=== PATIENT | female | born 1985 | race Caucasian/White ===

== ENCOUNTER 2017-01-19 20:58 | Emergency (ER) | payer OTHER ==
[~2017-01-19] VITALS: Ht 165.1 cm; Wt 74.8 kg
[~2017-01-19 20:58] MED LIST: AMOXICILLIN250 MG; MOTRIN600 M1; PROMETHAZINE D118 M1
[2017-01-19 20:59] VITALS: BP 131/79
--- NOTE | 2017-01-19 22:32 | NUR ---
PATIENT AMBULATED TO BED 2.
--- NOTE | 2017-01-19 22:33 | NUR ---
31Y F BIB FAMILY C/O ALLERGIC RXN OF UNKNOWN ORIGIN AT 1900 TODAY . PT STATES SHE IS HAVING SORE THROAT, TINGLING FACE . PT DENIES N/V/D; SKIN IS PINK/WARM/DRY; AAOX4 WITH EVEN AND STEADY GAIT; LUNGS CLEAR BL; HR EVEN AND REGULAR; PT DENIES ANY FEVER, CP, OR COUGH AT THIS TIME; PATIENT STATES PAIN OF 6/10 AT THIS TIME; VSS; PATIENT POSITIONED FOR COMFORT; HOB ELEVATED; BEDRAILS UP X2; BED DOWN. ER MD MADE AWARE OF PT STATUS.
[2017-01-20] MEDS ORDERED: KETOROLAC 60 MG/2 ML VIAL IM ONE
[2017-01-20] MEDS ORDERED: diphenhydrAMINE 50 MG CAP PO ONE (00:30)
--- NOTE | 2017-01-20 01:05 | NUR ---
Patient being evaluated by physician DR VELA at bedside.
[2017-01-20 01:38] VITALS: BP 126/74
--- NOTE | 2017-01-20 01:39 | NUR ---
Patient discharged with v/s stable. Written and verbal after care instructions given and explained. Patient alert, oriented and verbalized understanding of instructions. Ambulatory with steady gait. All questions addressed prior to discharge. ID band removed. Patient advised to follow up with PMD. Rx of BENDADRYL 25MG AND PREDNISONE 20MG given. Patient educated on indication of medication including possible reaction and side effects. Opportunity to ask questions provided and answered.
== END 2017-01-20 01:39 | disposition home or self-care (01) ==
LOC: MED 21:02
DX: T78.40XA Allergy, unspecified, initial encounter (principal); L50.9 Urticaria, unspecified; R22.0 Localized swelling, mass and lump, head; Z90.89 Acquired absence of other organs; X58.XXXA Exposure to other specified factors, initial encounter
CPT/HCPCS: 96372; 99284; J0171; J1885; Q0163

== ENCOUNTER 2018-02-06 18:19 | Emergency (ER) | payer MEDICAID, OTHER ==
[~2018-02-06] VITALS: Ht 165.1 cm; Wt 77.1 kg
[~2018-02-06 18:19] MED LIST changes: +AMOX250C31; -AMOXICILLIN250 MG; +DM/P118S7; +IBUP-2213; -MOTRIN600 M1; -PROMETHAZINE D118 M1
[2018-02-06 18:26] VITALS: BP 139/86
--- NOTE | 2018-02-06 18:30 | NUR ---
URINE CUP PROVIDED TO PT FOR URINE SAMPLE; PT AWAKE, ALERT, APPROPRIATE AT THIS TIME. PT TO LOBBY AWAITING OPEN BED.
[2018-02-06 19:05] LABS: HEMATOCRIT 38.6 % (36-48); HEMOGLOBIN 12.9 g/dL (12.0-16.0); MEAN CORPUSCULAR HEMOGLOBIN 32 pg (27-31); MEAN CORPUSCULAR HGB CONC 34 g/dL (33-37); MEAN CORPUSCULAR VOLUME 95 fL (80-94); PLATELET COUNT (AUTO) 297 K/uL (140-450); RED BLOOD CELL COUNT(AUTO) 4.07 MIL/uL (4.20-5.40); RED CELL DISTRIBUTION WIDTH 13.3 % (11.6-13.7); WHITE BLOOD COUNT (AUTO) 9.8 K/uL (4.8-10.8)
[2018-02-06 19:06] LABS: BASOPHILS # (AUTO) 0.1 K/uL (0.00-0.22); BASOPHILS % (AUTO) 0.9 % (0.0-2.0); EOSINOPHILS % (AUTO) 0.4 % (0.0-4.0); LYMPHOCYTES # (AUTO) 2.4 K/uL (2.5-16.5); LYMPHOCYTES % (AUTO) 24.9 % (20.5-51.1); MONOCYTES # (AUTO) 0.4 K/uL (0.8-1.0); MONOCYTES % (AUTO) 4.1 % (1.7-9.3); NEUTROPHILS # (AUTO) 6.8 K/uL (1.8-7.7); NEUTROPHILS % (AUTO) 69.7 % (42.2-75.2)
[2018-02-06 19:33] LABS: APPEARANCE,URINE CLEAR (CLEAR); BILIRUBIN,URINE NEGATIVE (NEGATIVE); BLOOD, URINE 2+ (NEGATIVE); COLOR,URINE YELLOW (YELLOW); LEUKOCYTE ESTERASE ,URINE TRACE (NEGATIVE); NITRITE, URINE NEGATIVE (NEGATIVE); UGLUCOSE NEGATIVE (NEGATIVE)
--- NOTE | 2018-02-06 19:40 | NUR ---
/ CAME IN W C/O VAGINAL BLEEDING X1 PAD S/P TRANSVAGINAL OB TODAY ORDERED BY HER OB. PT REPORTS 7/10 LOWER ABD PAIN RADIATING TO BACK. PT DENIES ANY CLOT, DENIES ANY ACTIVE BLEEDING AT THIS TIME, STATES " IT SLOWED DOWN NOW". , CURRENTYL 8 WEEKS . DENIES OTHER PMH/RX/OTC
[2018-02-06 19:48] LABS: RBC,URINE 11-20 (MOD) /HPF (0-5); WBC,URINE 0-5 (RARE) /HPF (0-5)
[2018-02-06 20:53] VITALS: BP 124/75
== END 2018-02-06 20:53 | disposition home or self-care (01) ==
LOC: MED 18:19
DX: O20.0 Threatened abortion (principal); O23.41 Unspecified infection of urinary tract in pregnancy, first trimester; Z3A.01 Less than 8 weeks gestation of pregnancy; Z91.013 Allergy to seafood
CPT/HCPCS: 36415; 76817; 81001; 84702; 85025; 86900; 86901; 99285; Q0092

== ENCOUNTER 2018-02-08 13:56 | Emergency (ER) | payer MEDICAID ==
[~2018-02-08] VITALS: Ht 165.1 cm; Wt 77.2 kg
[2018-02-08 14:01] VITALS: BP 128/71
--- NOTE | 2018-02-08 14:04 | NUR ---
URINE CUP PROVIDED TO PT FOR URINE SAMPLE; PT AWAKE, ALERT, APPROPRIATE WITH EVEN AND STEADY GAIT; PT TO LOBBY AWAITING OPEN BED.
--- NOTE | 2018-02-08 14:05 | NUR ---
32F BIB FAMILY C/O VAGINAL BLEEDING X 2 DAYS, WORSENING TODAY WITH CLOTTS; PT STATES 8 WEEKS AT THIS TIME. M0 A0. HX: PT DENIES. DENIES N/V/D. AAOX4 WITH EVEN AND STEADY GAIT; LUNGS CLEAR BL. PATIENT STATES PAIN OF 8/10 AT THIS TIME. PATIENT POSITIONED FOR COMFORT; HOB ELEVATED; BEDRAILS UP X2; BED DOWN. ER MD MADE AWARE OF PT STATUS.
--- NOTE | 2018-02-08 14:59 | NUR ---
PT AMBULATED TO BED 1.
[2018-02-08] MEDS ORDERED: ACETAMINOPHEN EXTRA STRENGTH 500 MG TAB PO ONE (15:10)
--- NOTE | 2018-02-08 15:34 | NUR ---
US AT BEDSIDE
[2018-02-08 15:45] LABS: APPEARANCE,URINE CLOUDY (CLEAR); BILIRUBIN,URINE NEGATIVE (NEGATIVE); BLOOD, URINE 3+ (NEGATIVE); COLOR,URINE RED (YELLOW); LEUKOCYTE ESTERASE ,URINE NEGATIVE (NEGATIVE); NITRITE, URINE NEGATIVE (NEGATIVE); UGLUCOSE NEGATIVE (NEGATIVE)
[2018-02-08 16:20] LABS: CALCIUM OXALATE CRYSTALS,UR 0-10 /HPF (None Seen); RBC,URINE TOO NUMEROUS TO COUN /HPF (0-5); WBC,URINE 0-5 (RARE) /HPF (0-5)
[2018-02-08 16:29] LABS: BASOPHILS # (AUTO) 0.2 K/uL (0.00-0.22); BASOPHILS % (AUTO) 1.7 % (0.0-2.0); EOSINOPHILS # (AUTO) 0.1 K/uL (0-0.4); EOSINOPHILS % (AUTO) 0.7 % (0.0-4.0); HEMOGLOBIN 12.9 g/dL (12.0-16.0); LYMPHOCYTES # (AUTO) 1.6 K/uL (2.5-16.5); LYMPHOCYTES % (AUTO) 12.8 % (20.5-51.1); MEAN CORPUSCULAR HEMOGLOBIN 32 pg (27-31); MEAN CORPUSCULAR HGB CONC 34 g/dL (33-37); MEAN CORPUSCULAR VOLUME 95 fL (80-94); MONOCYTES # (AUTO) 0.7 K/uL (0.8-1.0); MONOCYTES % (AUTO) 5.3 % (1.7-9.3); NEUTROPHILS # (AUTO) 10.2 K/uL (1.8-7.7); NEUTROPHILS % (AUTO) 79.5 % (42.2-75.2); PLATELET COUNT (AUTO) 270 K/uL (140-450); RED BLOOD CELL COUNT(AUTO) 4.02 MIL/uL (4.20-5.40); RED CELL DISTRIBUTION WIDTH 12.2 % (11.6-13.7); WHITE BLOOD COUNT (AUTO) 12.8 K/uL (4.8-10.8)
[2018-02-08 16:34] LABS: ALBUMIN 3.6 g/dL (3.4-5.0); TOTAL BILIRUBIN 0.3 mg/dL (0.0-1.0)
[2018-02-08 16:35] LABS: CARBON DIOXIDE 27.4 mmol/L (21-32); CREATININE 0.8 mg/dL (0.6-1.3); POTASSIUM 3.4 mmol/L (3.5-5.1)
--- NOTE | 2018-02-08 18:11 | NUR ---
FEMALE CHAPERONED FOR DR. MAJANO DURING PELVIC EXAM
--- NOTE | 2018-02-08 18:22 | NUR ---
Patient discharged with v/s stable. Written and verbal after care instructions given and explained. Patient verbalized understanding. Ambulatory with steady gait. All questions addressed prior to discharge. Advised to follow up with PMD.
[2018-02-08 18:23] VITALS: BP 120/68
== END 2018-02-08 18:22 | disposition home or self-care (01) ==
LOC: MED 13:56
DX: O03.9 Complete or unspecified spontaneous abortion without complication (principal); Z3A.08 8 weeks gestation of pregnancy; Z91.013 Allergy to seafood
CPT/HCPCS: 36415; 76801; 80053; 81001; 81025; 84702; 85025; 99285; Q0092

== ENCOUNTER 2018-08-05 10:33 | Emergency (ER) | payer MEDICAID ==
[~2018-08-05] VITALS: Ht 167.6 cm; Wt 82.1 kg
--- NOTE | 2018-08-05 10:45 | NUR ---
PT AMBULATES TO BED 5
[2018-08-05 10:50] VITALS: BP 144/79
--- NOTE | 2018-08-05 10:55 | NUR ---
HANDED CUP TO PT FOR URINE SAMPLE
--- NOTE | 2018-08-05 11:03 | NUR ---
ACCOMPANIED BY C/O REPEATED VOMITING X 3 DAYS--EPIGASTRIC PAIN WITH EMESIS REFERRED BY OB TO COME TO ER POSSIBLE DEHYDRATION ----07/25/2018 RX REGLAN; NOT REALLY WORKING, N/V FOLLOWS SOON AFTER LMP 05/12/2018 . DENIES N/V/D; SKIN IS PINK/WARM/DRY; AAOX4 WITH EVEN AND STEADY GAIT; LUNGS CLEAR BL; HR EVEN AND REGULAR; PT DENIES ANY FEVER, CP, SOB, OR COUGH AT THIS TIME; PATIENT STATES PAIN OF 0/10 AT THIS TIME; VSS; PATIENT POSITIONED FOR COMFORT; HOB ELEVATED; BEDRAILS UP X2; BED DOWN. ER MD MADE AWARE OF PT STATUS.
--- NOTE | 2018-08-05 11:18 | NUR ---
DR WOLFE EVALUATING AT BEDSIDE
[2018-08-05] MEDS ORDERED: MULTIVITAMIN-12 10 ML, THIAMINE 100 MG, MAGNESIUM SULFATE 50% 2,000 MG, FOLIC ACID 5 MG... IV ONE ×5 (11:35)
[2018-08-05] MEDS ORDERED: PROMETHAZINE 25 MG/ML VIAL IM ONE (11:35)
[2018-08-05] MEDS ORDERED: ONDANSETRON 4 MG/2 ML VIAL IVP ONE (11:35)
[2018-08-05 12:17] LABS: BASOPHILS % (AUTO) 0.5 % (0.0-2.0); EOSINOPHILS % (AUTO) 0.5 % (0.0-4.0); HEMATOCRIT 38.4 % (36-48); LYMPHOCYTES # (AUTO) 1.6 K/uL (2.5-16.5); LYMPHOCYTES % (AUTO) 19.2 % (20.5-51.1); MEAN CORPUSCULAR HEMOGLOBIN 32 pg (27-31); MEAN CORPUSCULAR HGB CONC 34 g/dL (33-37); MONOCYTES # (AUTO) 0.4 K/uL (0.8-1.0); MONOCYTES % (AUTO) 4.2 % (1.7-9.3); NEUTROPHILS # (AUTO) 6.4 K/uL (1.8-7.7); NEUTROPHILS % (AUTO) 75.6 % (42.2-75.2); PLATELET COUNT (AUTO) 240 K/uL (140-450); RED BLOOD CELL COUNT(AUTO) 4.08 MIL/uL (4.20-5.40); RED CELL DISTRIBUTION WIDTH 12.7 % (11.6-13.7); WHITE BLOOD COUNT (AUTO) 8.4 K/uL (4.8-10.8)
[2018-08-05 12:40] LABS: ANION GAP 11.2 (8-16); CARBON DIOXIDE 23.1 mmol/L (21-32); CHLORIDE 104 mmol/L (98-107); CREATININE 0.5 mg/dL (0.6-1.3); GFR ARICAN-AMERICAN 185 mL/min (>90); GLUCOSE 89 mg/dL (74-106); POTASSIUM 4.3 mmol/L (3.5-5.1); SODIUM SERUM 134 mmol/L (136-145); UREA NITROGEN, BLOOD 5 mg/dL (7-18)
[2018-08-05 12:41] LABS: ACETONE, SERUM NEGATIVE (NEGATIVE)
[2018-08-05 12:46] LABS: ALBUMIN 3.2 g/dL (3.4-5.0); AMYLASE 53 U/L (25-115); ASPARTATE AMINOTRANSFERASE 11 U/L (15-37); LIPASE 144 U/L (73-393); MAGNESIUM 1.8 mg/dL (1.8-2.4); TOTAL BILIRUBIN 0.2 mg/dL (0.0-1.0)
[2018-08-05 12:48] LABS: APPEARANCE,URINE CLEAR (CLEAR); BILIRUBIN,URINE NEGATIVE (NEGATIVE); BLOOD, URINE NEGATIVE (NEGATIVE); COLOR,URINE YELLOW (YELLOW); LEUKOCYTE ESTERASE ,URINE NEGATIVE (NEGATIVE); NITRITE, URINE NEGATIVE (NEGATIVE); PH,URINE 7.5 (5.0-9.0); UGLUCOSE NEGATIVE (NEGATIVE)
[2018-08-05 13:24] LABS: RBC,URINE 0-5 (RARE) /HPF (0-5)
--- NOTE | 2018-08-05 14:15 | NUR ---
Patient discharged with v/s stable. Written and verbal after care instructions given and explained. Patient alert, oriented and verbalized understanding of instructions. Ambulatory with steady gait. All questions addressed prior to discharge. ID band removed. Patient advised to follow up with PMD. Rx of ZOFRAN, given. Patient educated on indication of medication including possible reaction and side effects. Opportunity to ask questions provided and answered.
[2018-08-05 14:16] VITALS: BP 120/68
== END 2018-08-05 14:15 | disposition home or self-care (01) ==
LOC: MED 10:33
DX: O21.0 Mild hyperemesis gravidarum (principal); Z79.899 Other long term (current) drug therapy
CPT/HCPCS: 36415; 80053; 81001; 82009; 82150; 83690; 83735; 85025; 87086; 87186; 96365; 96372; 96374; 99284; A9153; J2405; J2550; J3411; J3475; J3490; J7030

== ENCOUNTER 2018-11-11 21:03 | Inpatient (IN) | payer MEDICAID ==
[~2018-11-11] VITALS: Ht 167.6 cm; Wt 77.1 kg
[2018-11-11] MEDS ORDERED: PREN-380 PO (21:58)
[2018-11-11] MEDS ORDERED: CEPH250C16 PO (21:58)
[2018-11-11] MEDS: LACTATED RINGERS 1,000 ML IV SCH (22:40)
[2018-11-11] MEDS ORDERED: NALBUPHINE 10 MG/ML AMP IVP ONE (22:45)
[2018-11-11 23:14] LABS: BARBITURATE, URINE NEG. ng/ml (NEG <=200); BENZODIAZEPINE, URINE NEG. ng/mL (NEG <=200); CANNABINOID, URINE NEG. ng/mL (NEG <=50); COCAINE, URINE NEG. ng/mL (NEG <=300); OPIATE, URINE NEG. ng/mL (NEG <=2000); PHENCYCLIDINE SCREEN,URINE NEG. ng/mL (NEG <=25)
[2018-11-11 23:22] LABS: APPEARANCE,URINE CLEAR (CLEAR); BILIRUBIN,URINE NEGATIVE (NEGATIVE); BLOOD, URINE TRACE-I (NEGATIVE); COLOR,URINE YELLOW (YELLOW); LEUKOCYTE ESTERASE ,URINE NEGATIVE (NEGATIVE); NITRITE, URINE NEGATIVE (NEGATIVE); UGLUCOSE NEGATIVE (NEGATIVE)
[2018-11-11 23:24] LABS: RBC,URINE 0-5 (RARE) /HPF (0-5); WBC,URINE 0-5 (RARE) /HPF (0-5)
[2018-11-11] MEDS ORDERED: AMPICILLIN 2,000 MG VIAL ONE (23:48)
[2018-11-12] MEDS ORDERED: GENTAMICIN 80 MG/2 ML VIAL ONE (00:02)
[2018-11-12] MEDS ORDERED: AMPICILLIN 2,000 MG in NACL 0.9% 100 ML IV SCH (01:00)
[2018-11-12] MEDS ORDERED: NALBUPHINE 10 MG/ML AMP ONE (01:03)
[2018-11-12] MEDS ORDERED: GENTAMICIN 120 MG in NACL 0.9% 100 ML IV SCH (02:00)
[2018-11-12] MEDS ORDERED: AMPICILLIN 2,000 MG VIAL ONE ×5 (03:56→20:10)
[2018-11-12] MEDS: LACTATED RINGERS 1,000 ML IV SCH ×2 (03:57→15:33)
[2018-11-12] MEDS ORDERED: GENTAMICIN 80 MG in NACL 0.9% 100 ML IV SCH (08:00)
[2018-11-12] MEDS: AMPICILLIN 2,000 MG in NACL 0.9% 100 ML IV SCH ×4 (08:02→20:20)
--- NOTE | 2018-11-12 08:30 | NUR ---
PATIENT HAS BEEN SCREENED AND CATEGORIZED LOW NUTRITION RISK. PATIENT WILL BE SEEN WITHIN 7 DAYS OF ADMISSION. 11/18/[address]
[2018-11-12] MEDS: GENTAMICIN 80 MG in DEXTROSE 5% 100 ML IV SCH ×2 (09:19→17:33)
[2018-11-12 15:04] LABS: BASOPHILS % (AUTO) 0.5 % (0.0-2.0); EOSINOPHILS % (AUTO) 0.6 % (0.0-4.0); HEMATOCRIT 32.2 % (36-48); HEMOGLOBIN 10.6 g/dL (12.0-16.0); LYMPHOCYTES # (AUTO) 1.4 K/uL (2.5-16.5); LYMPHOCYTES % (AUTO) 17.4 % (20.5-51.1); MEAN CORPUSCULAR HEMOGLOBIN 31 pg (27-31); MEAN CORPUSCULAR HGB CONC 33 g/dL (33-37); MEAN CORPUSCULAR VOLUME 94.3 fL (80-94); MONOCYTES # (AUTO) 0.4 K/uL (0.8-1.0); MONOCYTES % (AUTO) 4.7 % (1.7-9.3); NEUTROPHILS % (AUTO) 76.8 % (42.2-75.2); PLATELET COUNT (AUTO) 223 K/uL (140-450); RED BLOOD CELL COUNT(AUTO) 3.42 MIL/uL (4.20-5.40); RED CELL DISTRIBUTION WIDTH 12.9 % (11.6-13.7); WHITE BLOOD COUNT (AUTO) 7.8 K/uL (4.8-10.8)
[2018-11-13] MEDS ORDERED: AMPICILLIN 2,000 MG VIAL ONE ×4 (00:05→12:03)
[2018-11-13] MEDS: AMPICILLIN 2,000 MG in NACL 0.9% 100 ML IV SCH ×4 (00:07→12:15)
[2018-11-13] MEDS: GENTAMICIN 80 MG in DEXTROSE 5% 100 ML IV SCH ×2 (01:32→09:40)
[2018-11-13] MEDS: LACTATED RINGERS 1,000 ML IV SCH (09:59)
== END 2018-11-13 15:15 | disposition home or self-care (01) | DRG 566 ==
LOC: MLD 21:03
PROVIDERS: ADMIT Obstetrics & Gynecology; ATTEND Obstetrics & Gynecology
DX: O99.612 Diseases of the digestive system complicating pregnancy, second trimester (principal); K80.00 Calculus of gallbladder with acute cholecystitis without obstruction; O23.42 Unspecified infection of urinary tract in pregnancy, second trimester; O99.012 Anemia complicating pregnancy, second trimester; D64.9 Anemia, unspecified; Z3A.26 26 weeks gestation of pregnancy
CPT/HCPCS: 36415; 76770; 80170; 80305; 81001; 85025; 87086; J0290; J1580; J2300; J7030; J7060; J7120; Q0092

== ENCOUNTER 2019-01-01 10:10 | Inpatient (IN) | payer MEDICAID ==
[~2019-01-01] VITALS: Ht 165.1 cm; Wt 81.2 kg
[~2019-01-01 10:10] MED LIST changes: -AMOX250C31; -DM/P118S7; -IBUP-2213; +PREN-380 PO
[2019-01-01 10:55] VITALS: BP 129/66
[2019-01-01] MEDS ORDERED: TERBUTALINE 1 MG/ML VIAL SUBQ ONE (13:27)
[2019-01-01] MEDS ORDERED: TERBUTALINE 1 MG/ML VIAL SUBQ SCH (13:28)
== END 2019-01-01 17:00 | disposition home or self-care (01) | DRG 566 ==
LOC: MLD 10:10 → OBSVTOIN 10:52 → UNDODISOB 17:00
PROVIDERS: ADMIT Obstetrics & Gynecology; ATTEND Obstetrics & Gynecology
DX: O26.853 Spotting complicating pregnancy, third trimester (principal); Z3A.30 30 weeks gestation of pregnancy
CPT/HCPCS: 76805; 81000; G0378; J3105; Q0092

== ENCOUNTER 2019-02-06 16:12 | Observation (INO) | payer MEDICAID ==
[~2019-02-06] VITALS: Ht 165.1 cm; Wt 81.6 kg
[2019-02-06 17:12] VITALS: BP 109/70
== END 2019-02-06 19:10 | disposition home or self-care (01) ==
LOC: MLD 16:12
PROVIDERS: ADMIT Obstetrics & Gynecology; ATTEND Obstetrics & Gynecology
DX: O26.893 Other specified pregnancy related conditions, third trimester (principal); R10.9 Unspecified abdominal pain; Z3A.37 37 weeks gestation of pregnancy
CPT/HCPCS: 59025; 76805; 81000; G0378; Q0092

== ENCOUNTER 2019-02-12 16:06 | Inpatient (IN) | payer MEDICAID ==
[~2019-02-12] VITALS: Ht 165.1 cm; Wt 83.0 kg
[2019-02-12] MEDS ORDERED: ONDANSETRON 4 MG/2 ML VIAL IVP PRN (17:10)
[2019-02-12] MEDS ORDERED: MISOPROSTOL 25 MCG TAB VG PRN (17:10)
[2019-02-12 17:30] VITALS: BP 118/75
[2019-02-12 17:38] LABS: BASOPHILS # (AUTO) 0.1 K/uL (0.00-0.22); BASOPHILS % (AUTO) 0.7 % (0.0-2.0); EOSINOPHILS # (AUTO) 0.1 K/uL (0-0.4); EOSINOPHILS % (AUTO) 0.6 % (0.0-4.0); HEMATOCRIT 35.9 % (36-48); LYMPHOCYTES # (AUTO) 1.8 K/uL (2.5-16.5); LYMPHOCYTES % (AUTO) 21.5 % (20.5-51.1); MEAN CORPUSCULAR HEMOGLOBIN 31 pg (27-31); MEAN CORPUSCULAR HGB CONC 34 g/dL (33-37); MEAN CORPUSCULAR VOLUME 92.4 fL (80-94); MONOCYTES # (AUTO) 0.4 K/uL (0.8-1.0); MONOCYTES % (AUTO) 4.3 % (1.7-9.3); NEUTROPHILS # (AUTO) 6.1 K/uL (1.8-7.7); NEUTROPHILS % (AUTO) 72.9 % (42.2-75.2); PLATELET COUNT (AUTO) 242 K/uL (140-450); RED BLOOD CELL COUNT(AUTO) 3.88 MIL/uL (4.20-5.40); RED CELL DISTRIBUTION WIDTH 13.5 % (11.6-13.7); WHITE BLOOD COUNT (AUTO) 8.4 K/uL (4.8-10.8)
[2019-02-12 18:08] LABS: ALBUMIN 2.7 g/dL (3.4-5.0); ANION GAP 14.7 (8-16); CARBON DIOXIDE 22.5 mmol/L (21-32); CREATININE 0.7 mg/dL (0.6-1.3); POTASSIUM 4.2 mmol/L (3.5-5.1); TOTAL BILIRUBIN 0.2 mg/dL (0.0-1.0)
[2019-02-12] MEDS: LACTATED RINGERS 1,000 ML IV SCH (18:23)
[2019-02-12] MEDS ORDERED: AMPICILLIN 2,000 MG VIAL ONE (18:36)
[2019-02-12] MEDS ORDERED: AMPICILLIN 2,000 MG in NACL 0.9% 100 ML IV SCH (20:00)
[2019-02-12] MEDS ORDERED: MISOPROSTOL 25 MCG TAB ONE (21:42)
[2019-02-12] MEDS: AMPICILLIN 1,000 MG in NACL 0.9% 50 ML IV SCH (22:35)
[2019-02-12] MEDS ORDERED: AMPICILLIN 1,000 MG VIAL ONE (22:45)
[2019-02-13] MEDS: AMPICILLIN 1,000 MG in NACL 0.9% 50 ML IV SCH ×5 (02:37→22:07)
[2019-02-13] MEDS ORDERED: AMPICILLIN 1,000 MG VIAL ONE ×6 (02:41→22:03)
[2019-02-13] MEDS: LACTATED RINGERS 1,000 ML IV SCH ×2 (02:45→09:03)
[2019-02-13] MEDS ORDERED: OXYTOCIN 20 UNITS/LR PREMIX 1,000 ML IV ONE (05:55)
[2019-02-13] MEDS: OXYTOCIN 20 UNITS in LACTATED RINGERS 1,000 ML IV SCH (05:59)
--- NOTE | 2019-02-13 08:09 | NUR ---
PATIENT HAS BEEN SCREENED AND CATEGORIZED LOW NUTRITION RISK. PATIENT WILL BE SEEN WITHIN 7 DAYS OF ADMISSION. 02/19/[address]
[2019-02-13] MEDS ORDERED: BUPIVACAINE 0.125%/NS PREMIX 250 ML ONE (10:15)
[2019-02-13 11:55] LABS: APPEARANCE,URINE CLEAR (CLEAR); BILIRUBIN,URINE NEGATIVE (NEGATIVE); BLOOD, URINE NEGATIVE (NEGATIVE); COLOR,URINE YELLOW (YELLOW); LEUKOCYTE ESTERASE ,URINE NEGATIVE (NEGATIVE); NITRITE, URINE NEGATIVE (NEGATIVE); UGLUCOSE NEGATIVE (NEGATIVE)
[2019-02-13] MEDS ORDERED: DEXT 5% / LACT RING 1,000 ML IV SCH (18:30)
[2019-02-14] MEDS: AMPICILLIN 1,000 MG in NACL 0.9% 50 ML IV SCH ×2 (02:01→05:55)
[2019-02-14] MEDS ORDERED: AMPICILLIN 1,000 MG VIAL ONE ×2 (02:05→05:54)
[2019-02-14] MEDS ORDERED: BUPIVACAINE 0.125%/NS PREMIX 250 ML ONE (05:14)
[2019-02-14] MEDS ORDERED: BUPIVACAINE-MPF 0.5% 30 ML VIAL INJ ONE (05:25)
[2019-02-14] MEDS: OXYTOCIN 20 UNITS in LACTATED RINGERS 1,000 ML IV SCH (08:49)
[2019-02-14] MEDS ORDERED: OXYTOCIN 10 UNITS/ML VIAL ONE (10:50)
[2019-02-14] MEDS ORDERED: LIDOCAINE 1% 500 MG/50 ML VIAL ONE (10:50)
[2019-02-14] MEDS ORDERED: IBUPROFEN 600 MG TAB PO PRN (14:10)
[2019-02-14] MEDS ORDERED: OXYTOCIN 20 UNITS in LACTATED RINGERS 1,000 ML IV SCH (14:26)
[2019-02-14] MEDS ORDERED: DOCUSATE SODIUM 100 MG GELCAP PO PRN (14:30)
[2019-02-14] MEDS ORDERED: ACETAMINOPHEN 325 MG TAB PO PRN (14:30)
[2019-02-14] MEDS ORDERED: MEASLES, MUMPS, AND RUBELLA 1 VIAL SQVAC PRN (14:30)
[2019-02-14] MEDS ORDERED: BISACODYL 5 MG TABEC PO PRN (14:30)
[2019-02-15] MEDS ORDERED: INFLUENZA VIRUS VACCINE QUAD 0.5 ML SYR IMVAC PRN (04:55)
[2019-02-15] MEDS: IBUPROFEN 600 MG TAB PO PRN ×3 (06:27→17:58)
[2019-02-15 08:23] LABS: BASOPHILS # (AUTO) 0.1 K/uL (0.00-0.22); BASOPHILS % (AUTO) 0.9 % (0.0-2.0); EOSINOPHILS % (AUTO) 0.5 % (0.0-4.0); HEMATOCRIT 32.3 % (36-48); HEMOGLOBIN 10.8 g/dL (12.0-16.0); LYMPHOCYTES # (AUTO) 1.8 K/uL (2.5-16.5); LYMPHOCYTES % (AUTO) 19.6 % (20.5-51.1); MEAN CORPUSCULAR HEMOGLOBIN 31 pg (27-31); MEAN CORPUSCULAR HGB CONC 34 g/dL (33-37); MEAN CORPUSCULAR VOLUME 92.9 fL (80-94); MONOCYTES # (AUTO) 0.6 K/uL (0.8-1.0); MONOCYTES % (AUTO) 6.1 % (1.7-9.3); NEUTROPHILS # (AUTO) 6.7 K/uL (1.8-7.7); NEUTROPHILS % (AUTO) 72.9 % (42.2-75.2); PLATELET COUNT (AUTO) 188 K/uL (140-450); RED BLOOD CELL COUNT(AUTO) 3.47 MIL/uL (4.20-5.40); RED CELL DISTRIBUTION WIDTH 13.8 % (11.6-13.7); WHITE BLOOD COUNT (AUTO) 9.3 K/uL (4.8-10.8)
== END 2019-02-16 16:25 | disposition home or self-care (01) | DRG 560 ==
LOC: MLD 16:06 → MFCC 02-14 15:50
PROVIDERS: ADMIT Obstetrics & Gynecology; ATTEND Obstetrics & Gynecology
PROC: 10E0XZZ Delivery of Products of Conception, External Approach (ICD-10-PCS; principal; 2019-02-12)
PROC: 10907ZC Drainage of Amniotic Fluid, Therapeutic from Products of Conception, Via Natural or Artificial Opening (ICD-10-PCS; 2019-02-12)
PROC: 3E0R3BZ Introduction of Anesthetic Agent into Spinal Canal, Percutaneous Approach (ICD-10-PCS; 2019-02-12)
PROC: 00HU33Z Insertion of Infusion Device into Spinal Canal, Percutaneous Approach (ICD-10-PCS; 2019-02-12)
PROC: 3E033VJ Introduction of Other Hormone into Peripheral Vein, Percutaneous Approach (ICD-10-PCS; 2019-02-12)
PROC: 3E02340 Introduction of Influenza Vaccine into Muscle, Percutaneous Approach (ICD-10-PCS; 2019-02-12)
PROC: 3E0234Z Introduction of Serum, Toxoid and Vaccine into Muscle, Percutaneous Approach (ICD-10-PCS; 2019-02-12)
DX: O69.81X0 Labor and delivery complicated by cord around neck, without compression, not applicable or unspecified (principal); O76 Abnormality in fetal heart rate and rhythm complicating labor and delivery; Z37.0 Single live birth; Z3A.39 39 weeks gestation of pregnancy; Z23 Encounter for immunization
CPT/HCPCS: 36415; 80053; 81003; 85025; 86592; 86886; 86900; 86901; 87086; 87653-90; 90715; J0290; J2001; J2590; J3490; J7120

== ENCOUNTER 2021-10-27 18:03 | Emergency (ER) | payer OTHER, SELFPAY ==
[~2021-10-27] VITALS: Ht 165.1 cm; Wt 73.5 kg
[~2021-10-27 18:03] MED LIST changes: +ASPI81EC98 PO
--- NOTE | 2021-10-27 18:05 | NUR ---
35 Y/O FEMALE C/O ALLERGIC REACTION X10 MINUTES AGO. PT REPORTS SHE WAS EATING MASHED POTATOES WHEN SHE FELT HER THROAT CLOSING. PT ALLERGIC TO SEAFOOD BUT DENIES KNOWLEDGE OF EATING SEAFOOD. PT REPORTS RUNNING OUT OF EPIPEN. 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 PT PRESENTS RED, WITH HIVES NOTED ON NECK AND BODY. TONGUE AND EYELIDS ARE SWOLLEN. PT REPORTS 5/10 TONGUE PAIN AND REPORTS THAT IT IS NUMB. SPO2 99% ON RA, LUNG SOUNDS CLEAR. PT A/O X4 WITH EVEN AND UNLABORED REPIRATIONS PMH: DENIES ALLERGIES: SEAFOOD.
[2021-10-27 18:06] VITALS: BP 100/78
--- NOTE | 2021-10-27 18:07 | NUR ---
DR HINTON AT BEDSIDE EVALUATING PT
[2021-10-27] MEDS ORDERED: diphenhydrAMINE 50 MG/ML VIAL IVP ONE (18:10)
[2021-10-27] MEDS ORDERED: FAMOTIDINE 20 MG/2 ML VIAL IVP ONE (18:10)
[2021-10-27] MEDS ORDERED: NACL 0.9% 1,000 ML IV ONE (18:10)
[2021-10-27] MEDS ORDERED: methylPREDNISolone SS 125 MG/2 ML VIAL IVP ONE (18:10)
[2021-10-27] MEDS ORDERED: EPINEPHrine 1 MG/ML AMP IM ONE (18:10)
--- NOTE | 2021-10-27 18:23 | NUR ---
DR HINTON AT BEDSIDE REEXAMINING PT
--- NOTE | 2021-10-27 18:48 | NUR ---
PT SITTING UP IN BED WITH EVEN AND UNLABORED RESPIRATIONS. REDNESS/HIVES HAVE RESOLVED. PTS EYELIDS AND TONGUE ARE STILL SWOLLEN. PT DENIES TROUBLE BREATHING, SPO2 99% ON RA. VSS
--- NOTE | 2021-10-27 19:26 | NUR ---
REPORT GIVEN TO AISLINN BEYER, TRANSFER OF CARE AT THIS TIME
--- NOTE | 2021-10-27 20:00 | NUR ---
RESTING IN BED, PT STATES SHE IS FEELING BETTER "MY TONGUE SWELLING IS LESS". SKIN IS WARM AND DRY. SPEECH IS VERY SLIGHTLY GARBLED
--- NOTE | 2021-10-27 21:00 | NUR ---
SPEECH IS CLEAR. PT STATES "I'M FEELING BETTER" SPEECH IS CLEAR AND PT IN NAD
[2021-10-27] MEDS ORDERED: EPIN1KIT31 IM (21:35)
[2021-10-27] MEDS ORDERED: FAMO-92 PO (21:35)
[2021-10-27] MEDS ORDERED: DIPH25TA53 PO (21:35)
[2021-10-27] MEDS ORDERED: PRED20TA5 PO (21:35)
[2021-10-27 21:59] VITALS: BP 124/82
--- NOTE | 2021-10-27 21:59 | NUR ---
Patient discharged with v/s stable. Written and verbal after care instructions given and explained. Patient alert, oriented and verbalized understanding of instructions. Ambulatory with steady gait. All questions addressed prior to discharge. ID band removed. Patient advised to follow up with PMD. Rx of benadryl, epipen, pepcid, prednisone given. Patient educated on indication of medication including possible reaction and side effects. Opportunity to ask questions provided and answered.
== END 2021-10-27 21:59 | disposition home or self-care (01) ==
LOC: MED 18:03
DX: T78.2XXA Anaphylactic shock, unspecified, initial encounter (principal); Z79.899 Other long term (current) drug therapy
CPT/HCPCS: 96361; 96372; 96374; 96375; 99284; J0171; J1200; J2930; J3490; J7030

== ENCOUNTER 2021-11-12 10:34 | Emergency (ER) | payer OTHER ==
[~2021-11-12] VITALS: Ht 167.6 cm; Wt 73.9 kg
[~2021-11-12 10:34] MED LIST changes: +DIPH25TA53 PO; +EPIN1KIT31 IM; +FAMO-92 PO; +PRED20TA5 PO
[2021-11-12] MEDS ORDERED: EPINEPHrine 1 MG/ML AMP ONE (10:40)
[2021-11-12] MEDS ORDERED: diphenhydrAMINE 50 MG/ML VIAL ONE (10:40)
--- NOTE | 2021-11-12 10:40 | NUR ---
PT W/C ASSISTED TO BED 11.
[2021-11-12] MEDS ORDERED: FAMOTIDINE 20 MG TAB ONE (10:41)
[2021-11-12] MEDS ORDERED: FAMOTIDINE 20 MG/2 ML VIAL ONE (10:42)
[2021-11-12 10:44] VITALS: BP 105/68
[2021-11-12] MEDS: EPINEPHrine 1 MG/ML AMP IM ONE (10:48)
[2021-11-12] MEDS: FAMOTIDINE 20 MG/2 ML VIAL IVP ONE (10:49)
[2021-11-12] MEDS: diphenhydrAMINE 50 MG/ML VIAL IVP ONE (10:49)
[2021-11-12] MEDS: methylPREDNISolone SS 125 MG/2 ML VIAL IVP ONE (10:50)
--- NOTE | 2021-11-12 11:01 | NUR ---
35 Y/O FEMALE BIB FAMILY C/O ALLERGIC REACTION [id number] S/P TAKING IBUPROFEN. PT IS C/O SOB, CHEST PAIN, ITCHINESS THROUGHOUT BODY, DENIES N/V/D, DENIES FEVER/CHILLS. PT PLACED ON FERN GATHERER, SPO2 99% ON MD VOLODYMYR AT PT BEDSIDE. PT STATES SHE INJECTED EPI PEN PRIOR TO ARRIVAL. SKIN IS FLUSHED AT THIS TIME AND SIGNS OF STRATCHING NOTED. WHEEZING HEARD THROUGHOUT BILATERAL BASES. DENIES PMH ALLERGIES: SEAFOOD UNKNOWN IBUPROFEN ALLERGIES
--- NOTE | 2021-11-12 11:04 | NUR ---
PT RESTING IN BED, NO SOB NOTED VISIBLE EQUAL RISE AND FALL OF CHEST, VSS, WILL CONTINU E TO MONITOR.
--- NOTE | 2021-11-12 11:24 | NUR ---
PT BOYFRIEND BEDSIDE
--- NOTE | 2021-11-12 12:46 | NUR ---
Patient appears to be resting comfortably in bed. Vital Signs within normal limits. Respirations even and unlabored.
--- NOTE | 2021-11-12 13:25 | NUR ---
PT PROVIDED WITH CUP OF WATER BEDSIDE
[2021-11-12] MEDS ORDERED: DIPH25TA53 PO (14:05)
[2021-11-12] MEDS ORDERED: PRED20TA5 PO (14:05)
[2021-11-12] MEDS ORDERED: EPIN1KIT31 IM (14:05)
[2021-11-12 14:20] VITALS: BP 95/54
--- NOTE | 2021-11-12 14:21 | NUR ---
Patient discharged with v/s stable. Written and verbal after care instructions given and explained. Patient alert, oriented and verbalized understanding of instructions. Ambulatory with steady gait. All questions addressed prior to discharge. ID band removed. Patient advised to follow up with PMD. Rx of BENADRYL, EPIPEN, AND PREDNISONE given. Patient educated on indication of medication including possible reaction and side effects. Opportunity to ask questions provided and answered.
== END 2021-11-12 14:20 | disposition home or self-care (01) ==
LOC: MED 10:34
DX: T78.2XXA Anaphylactic shock, unspecified, initial encounter (principal); Z79.899 Other long term (current) drug therapy; Z79.82 Long term (current) use of aspirin; Z88.6 Allergy status to analgesic agent; Z91.013 Allergy to seafood
CPT/HCPCS: 96372; 96374; 96375; 99284; J0171; J1200; J2930; J3490

== ENCOUNTER 2022-08-21 16:25 | Emergency (ER) | payer OTHER ==
[~2022-08-21] VITALS: Ht 165.1 cm; Wt 69.1 kg
[2022-08-21 16:42] VITALS: BP 123/75
[2022-08-21 17:42] LABS: BILIRUBIN,URINE NEGATIVE (NEGATIVE); BLOOD, URINE 3+ (NEGATIVE); LEUKOCYTE ESTERASE ,URINE 1+ (NEGATIVE); NITRITE, URINE NEGATIVE (NEGATIVE); UGLUCOSE NEGATIVE (NEGATIVE)
[2022-08-21 17:44] LABS: BASOPHILS # (AUTO) 0.1 K/uL (0.00-0.22); BASOPHILS % (AUTO) 0.7 % (0.0-2.0); EOSINOPHILS # (AUTO) 0.1 K/uL (0-0.4); EOSINOPHILS % (AUTO) 1.6 % (0.0-4.0); HEMATOCRIT 38.3 % (36-48); LYMPHOCYTES # (AUTO) 1.9 K/uL (2.5-16.5); LYMPHOCYTES % (AUTO) 22.8 % (20.5-51.1); MEAN CORPUSCULAR HEMOGLOBIN 32 pg (27-31); MEAN CORPUSCULAR HGB CONC 34 g/dL (33-37); MEAN CORPUSCULAR VOLUME 93.6 fL (80-94); MONOCYTES # (AUTO) 0.4 K/uL (0.8-1.0); MONOCYTES % (AUTO) 4.6 % (1.7-9.3); NEUTROPHILS # (AUTO) 5.8 K/uL (1.8-7.7); NEUTROPHILS % (AUTO) 70.3 % (42.2-75.2); PLATELET COUNT (AUTO) 265 K/uL (140-450); RED CELL DISTRIBUTION WIDTH 12.8 % (11.6-13.7); WHITE BLOOD COUNT (AUTO) 8.2 K/uL (4.8-10.8)
[2022-08-21 17:55] LABS: APPEARANCE,URINE CLOUDY (CLEAR)
[2022-08-21 17:56] LABS: COLOR,URINE BLOODY (YELLOW)
[2022-08-21 18:18] LABS: RBC,URINE TOO NUMEROUS TO COUN /HPF (0-5)
[2022-08-21] MEDS ORDERED: NITR100C7 PO (19:37)
[2022-08-21] MEDS ORDERED: ACET-2619 PO (19:37)
[2022-08-21 20:05] VITALS: BP 123/75
== END 2022-08-21 20:05 | disposition home or self-care (01) ==
LOC: MED 16:25
DX: N39.0 Urinary tract infection, site not specified (principal); Z79.1 Long term (current) use of non-steroidal anti-inflammatories (NSAID)
CPT/HCPCS: 36415; 81001; 81025; 84702; 85025; 87086; 99283